=== PATIENT | female | born 1995 | race Caucasian/White ===

== ENCOUNTER 2019-04-30 04:07 | Emergency (ER) | payer OTHER ==
[~2019-04-30] VITALS: Ht 198.1 cm; Wt 53.5 kg
[2019-04-30] MEDS ORDERED: VALACYCLOVIR500 MG (04:22)
[2019-04-30] MEDS ORDERED: AMOX-CLAV 875-1 EACH PO (08:10)
[2019-04-30] MEDS ORDERED: INTESTINEX680 M1 PO (08:10)
[2019-04-30] MEDS ORDERED: [UNRECOGNIZED DRUG - OTHER] (19:17)
== END 2019-04-30 08:43 | disposition home or self-care (01) ==
LOC: ER 04:07
DX: J06.9 Acute upper respiratory infection, unspecified (principal); R30.0 Dysuria; R50.9 Fever, unspecified

== ENCOUNTER → 2019-04-30 | Emergency (ER) | payer OTHER ==
[~2019-04-30] VITALS: Ht 160 cm; Wt 54.0 kg
[~2019-04-30] MED LIST: AMOX-CLAV 875-1 EACH PO; CEFDINIR300 MG PO; INTESTINEX680 M1 PO; VALACYCLOVIR500 MG; [UNRECOGNIZED DRUG - OTHER]
== END | disposition left against medical advice (07) ==
LOC: ER 18:51
DX: Z53.20 Procedure and treatment not carried out because of patient's decision for unspecified reasons (principal)

== ENCOUNTER 2019-05-01 03:23 | Inpatient (IN) | payer OTHER ==
[~2019-05-01] VITALS: Ht 170.2 cm; Wt 56.7 kg
[~2019-05-01 03:23] MED LIST changes: -CEFDINIR300 MG PO
[2019-05-04] MEDS ORDERED: INTESTINEX680 M1 PO (10:52)
[2019-05-04] MEDS ORDERED: CEFDINIR300 MG PO (10:52)
== END 2019-05-04 11:54 | disposition home or self-care (01) | DRG 690 ==
LOC: ER 03:23 → SEC-K 10:38 → SURG 14:00 → MEDI 05-02 19:17
PROVIDERS: ADMIT Internal Medicine
PROC: BW40ZZZ Ultrasonography of Abdomen (ICD-10-PCS; principal; 2019-05-01)
PROC: BW4GZZZ Ultrasonography of Pelvic Region (ICD-10-PCS; 2019-05-01)
DX: N39.0 Urinary tract infection, site not specified (principal); R65.10 Systemic inflammatory response syndrome (SIRS) of non-infectious origin without acute organ dysfunction; R50.9 Fever, unspecified; R10.12 Left upper quadrant pain; R30.0 Dysuria; D72.828 Other elevated white blood cell count